=== PATIENT | female | born 1940 | race Caucasian/White ===

== ENCOUNTER → 2016-12-24 12:29 | Outpatient (CLI) | payer MEDICARE, OTHER ==
[2016-08-21 13:36] VITALS: BMI 20.8
[~2016-12-24 12:29] MED LIST: ADVAIR 250/501 DISK INH; FLUTICASONE PRO16 GM NASAL; LISINOPRIL5 MG PO; NORVASC5 MG PO; VITAMIN D31000 UNI2 PO; ZOCOR40 MG PO
== END | disposition home or self-care (01) ==
LOC: D.CT 12:29
DX: R91.1 Solitary pulmonary nodule (principal)

== ENCOUNTER → 2017-05-22 16:58 | Outpatient (CLI) | payer MEDICARE, OTHER ==
[2016-08-21 13:36] VITALS: BMI 20.8
== END | disposition home or self-care (01) ==
LOC: D.MAMMO 15:15
DX: Z12.31 Encounter for screening mammogram for malignant neoplasm of breast (principal)

== ENCOUNTER → 2018-03-19 14:08 | Outpatient (CLI) | payer MEDICARE, OTHER ==
[2016-08-21 13:36] VITALS: BMI 20.8
== END | disposition home or self-care (01) ==
LOC: D.CT 03-17 13:00
DX: I71.2 Thoracic aortic aneurysm, without rupture (principal)

== ENCOUNTER → 2018-08-12 07:38 | Outpatient (CLI) | payer MEDICARE, OTHER ==
[2016-08-21 13:36] VITALS: BMI 20.8
[2018-08-13 14:25] LABS: ANA REFLEX - DIRECT Negative (Negative)
[2018-08-27 11:17] LABS: FUNGAL - ASP FLAVUS Negative (Neg:<1:1); FUNGAL - ASP NIGER Negative (Neg:<1:1); FUNGAL - ASPER FUMIGATUS Negative (Neg:<1:1)
== END | disposition home or self-care (01) ==
LOC: D.RT 07:38
PROVIDERS: Internal Medicine Pulmonary Disease
DX: R91.8 Other nonspecific abnormal finding of lung field (principal)

== ENCOUNTER → 2019-08-28 10:12 | Outpatient (CLI) | payer MEDICARE, OTHER ==
[2016-08-21 13:36] VITALS: BMI 20.8
== END ==
LOC: D.CT 10:12
PROVIDERS: ATTEND Internal Medicine Cardiovascular Disease
DX: D15.0 Benign neoplasm of thymus (principal)